=== PATIENT | female | born 1965 | race Caucasian/White ===

== ENCOUNTER 2024-10-06 11:53 | Outpatient (REF) | payer BC, SELFPAY | END 2024-10-06 11:54 | disposition home or self-care (01) | LOC: LBN 11:53 | PROVIDERS: PCP Nurse Practitioner Family; Visit Provider Nurse Practitioner Family | DX: L29.0 Pruritus ani (principal) | CPT/HCPCS: 87177 ==

== ENCOUNTER 2024-10-11 01:28 | Outpatient (CLI) | payer BC, SELFPAY ==
--- NOTE | 2024-10-11 07:00 | DI.MAMMO_ITS ---
Exam(s) MAMMO SCREENING EXAM: MAMMO SCREENING CLINICAL HISTORY: screening,Z12.39. TECHNIQUE: Bilateral full field digital CC and MLO mammographic images were obtained with 3D tomosyn thesis and utilizing computer aided detection (CAD). COMPARISON: No prior mammograms available time of this interpretation. FINDINGS: There are no CAD designations. There are no new spiculated masses nor malignant appearing microcalcification groups. There is no significant architectural distortion nor skin thickening-retraction. IMPRESSION: No radiographic evidence of malignancy. BI-RADS Category 1 - Negative Breast Density - Category B - Scattered areas of fibroglandular density Breast density Category C or D implies that the patient has dense breast tissue. Dense breast tissue can make it harder to find cancer on a mammogram. Dense breast tissue is also associated with an incr eased risk of breast cancer. This information about the result of the mammogram report was provided to the patient to raise their awareness. Use this report when you speak with the patient about their risks for breast cancer, which includes their family history. At that time, you may recommend additional screening tests (Ultrasoun d or MRI) as these tests may add significant information. A negative radiographic report should not delay biopsy if a dominant or clinically suspicious mass is present. Up to ten percent of cancers are not identified on mammography. A negative report may reinforce clinical impression. Adenosis and dense breasts may obscure an underlying neoplasm. False positive reports average 6 to 10%. Patient will receive a letter notifying them of these results.
== END 2024-10-11 01:48 ==
LOC: DI 01:29
PROVIDERS: PCP Nurse Practitioner Family; Visit Provider Nurse Practitioner Family
DX: Z12.31 Encounter for screening mammogram for malignant neoplasm of breast (principal); R92.323 Mammographic fibroglandular density, bilateral breasts
CPT/HCPCS: 77063; 77067

== ENCOUNTER 2025-05-19 09:31 | Day surgery (SDC) | payer BC, SELFPAY ==
[2025-05-19 10:13] VITALS: BP 131/75; PULSE 86; RESP 16; TEMP 35.9; O2SAT 99
[2025-05-19] MEDS: Lactated Ringers 1,000 ML 80 ML IV (10:29)
--- NOTE | 2025-05-19 11:05 | W.ANESPRE ---
General Info Date of Service Date Performed: 05/19/25 Height: 5 ft 4 in Weight: 70.76 kg Body Mass Index (BMI): 26.7 Surgical Procedure: Operation Date: 05/19/25 11:35 Proposed Procedure Side Surgeon p Colonoscopy/Gastroscopy Lindsay Sahu MD Meds Allergies and Home Medications Allergies Allergy/AdvReac Type Severity Reaction Status Date / Time bupropion Allergy Severe maliase Verified 05/19/25 10:12 NSAIDS (Non-Steroidal Allergy Severe Skin Rash Verified 05/19/25 10:12 Anti-Inflamma phenobarbital Allergy Severe Hives Verified 05/19/25 10:12 Home Medication ?Medication ?Instructions ?Recorded melatonin 5 mg tablet 5 mg PO HS 10/01/24 paroxetine HCl 10 mg tablet 10 mg PO DAILY #90 tabs 01/04/25 bisacodyl 5 mg tablet,delayed 5 mg PO ONCE #4 tabs 03/30/25 release (Dulcolax (bisacodyl)) polyethylene glycol 3350 17 17 g PO ONCE #238 grams 03/30/25 gram/dose oral powder Current Visit Medications: Current Medications Generic Name Dose Route Start Last Admin Trade Name Freq PRN Reason Stop Dose Admin Ringer's Solution 1,000 mls @ 80 mls/hr 05/19/25 06:00 05/19/25 10:29 IV 05/19/25 23:59 80 mls/hr INFUSION AASHISH Administration IV Miscellaneous Supplies 1 each 05/19/25 06:00 Iv Access IV 05/19/25 23:59 DIRECTED AASHISH Sodium Biphosphate/Sodium Phosphate 133 ml 05/19/25 06:00 Na Phosphate Enema-Adult 133 Ml Btl NC 05/19/25 23:59 DIRECTED PRN Sodium Chloride 0 ml 05/19/25 06:00 Normal Saline Flush 10 Ml Syr IV 05/19/25 23:59 PRN PRN Sodium Chloride 0 ml 05/19/25 06:00 Normal Saline 10 Ml Vial IJ 05/19/25 23:59 DIRECTED PRN Sterile Water 0 ml 05/19/25 06:00 Water,Injection,Sterile 10 Ml Vial IJ 05/19/25 23:59 DIRECTED PRN PFSH Active Problems Active Problems: Problem Status Onset Code Encounter for screening colonoscopy Acute Z12.11 GERD (gastroesophageal reflux disease) Chronic K21.9 Generalized anxiety disorder Chronic F41.1 CAD (coronary artery disease) Chronic I25.10 Pruritus ani Chronic L29.0 Medical History Medical History Myocardial infarction (~2016) s/p LIZZETTE to mid RCA, and distal LAD. 2017 Pt. states she stopped seeing cardiology in 2017 because she did not want to be on medication. Type 2 diabetes mellitus Urethrocele, female Surgical History Surgical History Hx of hysterectomy H/O elbow surgery History of cataract surgery (~12/04/16) Hx of appendectomy Tobacco Smoking/Tobacco Use Status: Never Passive smoking exposure: Yes Second hand exposure: Yes Alcohol Alcohol Intake: never Substance Use Substance use: Never Substance use type: does not use Vital Signs and Lab Results Vital Signs Most Recent Vital Signs in EMR: Most Recent Vital Signs Temp Pulse Resp BP Pulse Ox 35.9 C L 86 16 131/75 99 05/19/25 10:13 05/19/25 10:13 05/19/25 10:13 05/19/25 10:13 05/19/25 10:13 Point of Care Results Point of Care Results: Finger Stick Blood Glucose 118 05/19/25 10:10 Anesthesia Assessment and Plan Anesthesia History Personal History: No History of Anesthesia Complications Family History: No Family History of Anesthesia Complications Exercise Tolerance Exercise Tolerance: Metabolic Equivalents>4 Pertinent Negatives Pertinent Negatives: No Major Cardiovascular Symptoms or Complaints and No Major Pulmonary Symptoms or Complaints Cardiac & Pulmonary Exam Cardiac Exam: Normal S1/S2 Heart Sounds Pulmonary Exam: Clear Bilateral Breath Sounds Implantable Cardiac Device Does patient have a Pacemaker or an ICD?: No Airway Exam Known Difficult Airway: No Mallampati Class: 2 Mouth Opening: Normal (> 3cm) Thyromental Distance: Greater than 3 cm Neck Range of Motion: Full ROM Neck Circumference: Normal Teeth Condition: Normal Dentition ASA Classification ASA Score: ASA 3 Emergency Case?: No NPO Status NPO Status: NPO Clears >2 hours, Solids >8 hours Anesthesia Plan Resuscitation Status: Full Code Anesthesia Technique: General Anesthesia Airway Planned: Natural Airway Monitors Used: Standard Monitors Preoperative Comments:: Reports no current GERD symptoms, no acute nausea with prep.
[2025-05-19 11:23] VITALS: BMI 26.7
--- NOTE | 2025-05-19 11:33 | W.PM.HP.N ---
Date of service: 05/19/25 Time of Service: 11:34 Assessment and Plan Assessment and plan (1) Encounter for screening colonoscopy: Status: Acute Assessment and plan: proceed w colonoscopy (2) GERD (gastroesophageal reflux disease): Status: Chronic Assessment and plan: proceed with egd. (3) Dysphagia: Status: Acute History of Present Illness Narrative: here for endoscopy. 60yo F due for screening colonoscopy. last scope more than 10y ago, was normal with no polyps. No known fam hx of colrectal cancer. no high risk features or risk factors. no symptoms. chronic constipation. Dysphagia and throat clearing frequently. omeprazole did not help. set up for endoscopy by me today. brother and dad had esoph strictures. PFSH All Active Problems (Updated 05/19/25 @ 11:36 by Lindsay Sahu MD) Dysphagia (Acute) Encounter for screening colonoscopy (Acute) GERD (gastroesophageal reflux disease) (Chronic) Generalized anxiety disorder (Chronic) CAD (coronary artery disease) (Chronic) [place] 2017 s/p LIZZETTE to mid RCA, and distal LAD. Pruritus ani (Chronic) Medical History Myocardial infarction (~2017) s/p LIZZETTE to mid RCA, and distal LAD. 2017 Pt. states she stopped seeing cardiology in 2017 because she did not want to be on medication. Type 2 diabetes mellitus Urethrocele, female Surgical History Hx of hysterectomy H/O elbow surgery History of cataract surgery (~12/04/16) Hx of appendectomy Family History Mother Alcohol use disorder Dementia Depression Heart disease Myocardial infarction Father Alcohol use disorder Myocardial infarction Heart disease Bladder cancer Brother No problems noted. Sister No problems noted. Sister No problems noted. Daughter Hypermobile Macy-Danlos syndrome Diabetes Daughter No problems noted. Maternal Grandfather Diabetes Maternal Grandmother No problems noted. Paternal Grandfather No problems noted. Paternal Grandmother No problems noted. Social History Smoking/Tobacco Use Status: Never Second Hand Exposure: Yes Smoking risk assessment performed?: Yes Alcohol Intake: never Drug use: Never Substance use type: does not use Adopted: No Caregiver/Support person: No Household members: spouse and children Housing: house Number of Children: 2 number of grandchildren: 0 Communication Needs: None Education Level: college Do you need help understanding health information?: Rarely current occupation: retired corporate real estate specialist Sexually active: No Do you think of yourself as: straight/heterosexual Current gender identity: female What is your relationship status?: How often do you talk on the phone with friends or family?: three or more times per week How often do you get together with friends or relatives?: three or more times per week How often do you attend holiness or mandaen services?: decline to answer Do you belong to any clubs or organized social groups?: yes Panel score (0-1 are the most socially isolated patients): 3 NHANES result reviewed/action taken: Yes What type of physical activity do you participate in: none Leonora/Muslim: Non jainism Special leonora needs: No Seatbelt use: always Helmet use: Yes Helmet use: always Drive intox or ride w/intox haul driver: No Firearms in home: No Do you feel safe at home: Yes Do you feel safe in your relationship?: Yes Victim of physical abuse: No Victim of emotional abuse: Yes Victim of sexual abuse: No Would you like helpful sources: Yes Meds Allergies and Home Medications Allergies Allergy/AdvReac Type Severity Reaction Status Date / Time bupropion Allergy Severe maliase Verified 05/19/25 10:12 NSAIDS (Non-Steroidal Allergy Severe Skin Rash Verified 05/19/25 10:12 Anti-Inflamma phenobarbital Allergy Severe Hives Verified 05/19/25 10:12 Home Medications ?Medication ?Instructions ?Recorded ?Confirmed ?Type melatonin 5 mg tablet 5 mg PO HS 10/01/24 05/16/25 History paroxetine HCl 10 mg tablet 10 mg PO DAILY #90 tabs 01/04/25 05/19/25 Rx bisacodyl 5 mg tablet,delayed 5 mg PO ONCE #4 tabs 03/30/25 05/16/25 Rx release (Dulcolax (bisacodyl)) polyethylene glycol 3350 17 17 g PO ONCE #238 grams 03/30/25 05/16/25 Rx gram/dose oral powder Exam Narrative Exam Narrative: awake, NAD eomi, MMM midline trachea, neck is symmetric PULM: normal resp effort, equal chest rise with respiration, no wheezing audible CARDIAC: normal PMI, no jvd, regular rate, normal perfusion abdomen is nondistended. extremities are without deformity, normal movement of all four extremities speech is clear and coherent mood and affect are congruent, no focal neurological deficits skin without rash Results Last Vital Signs Temp 96.6 F L 05/19/25 10:13 Pulse 86 05/19/25 10:13 Resp 16 05/19/25 10:13 BP 131/75 05/19/25 10:13 Pulse Ox 99 05/19/25 10:13 Time Spent Time spent with Patient: <40 minutes Time was spent: preparing to see the patient(eg.review tests) and counseling the patient
--- NOTE | 2025-05-19 11:46 | W.PM.DSUDISC ---
Date of service: 05/19/25 Discharge Plan Disposition Patient Disposition: Home Condition: Stable Discharge Details Attending Provider: Lindsay Sahu Primary Care Provider: Denice Griffin Recommendations for Follow Up Recommended tests to be ordered by follow up provider: Next colonoscopy due in 10 years. Erosive gastritis, hiatal hernia and esophagitis. Pantoprazole for 3 months prescribed. 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 Home Meds and New Rx's Prescriptions: Continued melatonin 5 mg tablet 5 mg PO HS paroxetine HCl 10 mg tablet 10 mg PO DAILY Qty: 90 3RF Discontinued bisacodyl [Dulcolax (bisacodyl)] 5 mg tablet,delayed release (DR/EC) 5 mg PO ONCE Qty: 4 0RF Rx Instructions: Take per colonoscopy instructions provided by ordering providers office polyethylene glycol 3350 17 gram/dose powder 17 g PO ONCE Qty: 238 0RF Rx Instructions: Take per colonoscopy instructions provided by ordering providers office Discharge Instructions Additional Instructions: Next colonoscopy due in 10 years. Your colon is normal. Diverticulosis of the sigmoid colon noted, no diverticulitis (infection) present. Take a daily fiber supplement and eat a high fiber diet to prevent problems and progression of diverticulosis. EGD showed erosions in the stomach and swelling of the esophagus as a consequence of acid. You have hiatal hernia that is small and allows reflux of acid onto the esophagus. You did not need to be stretched/dilated, but you do need medication to heal the esophagus and stomach. Pantoprazole for 3 months prescribed. After 3 months, your primary provider can determine if you should stay on medication for longer. Stand Alone Forms: Anesthesia Discharge Inst., DSU Post EGD Instructions, Colonoscopy Post Instructions, Yris Alonzo (DSU) Activity:: Activity as Tolerated Diet:: As Tolerated Discharge Orders Discharge Orders: Discharge Order (Routine); Ordered 05/19/25 Ordered By: Lindsay Sahu DS: Diagnosis Discharge Diagnosis (1) Encounter for screening colonoscopy: Status: Acute (2) GERD (gastroesophageal reflux disease): Status: Chronic (3) Dysphagia: Status: Acute (4) Hiatal hernia with GERD and esophagitis: Status: Acute (5) Erosive gastritis with hemorrhage: Status: Acute
--- NOTE | 2025-05-19 11:59 | STOM_PTH ---
PATIENT: Home Brown LOC: [facility] U#:[id number] AGE/SX: 60/F ROOM: RE05/19/[address]: Lindsay Sahu MD : 1965 BED: DIS: 05/19/2025 SPEC #: [id number] RECD: 05/19/25 17:04 STATUS: CRAIG Rozina #: [id number] DARLENE: 05/19/25 11:[address]: Lindsay Sahu DEPT: Surgical Specimen RECD BY: Jacqueiln Gonzalez ENTERED: 05/19/25 17:16 SP TYPE: STOMACH OTHR DR: Denice Griffin, ANNEALING OPERATOR Tissues: 1 - STOMACH BIOPSY 2 - STOMACH BIOPSY Procedures: GROSS AND MICRO LEVEL 4 Comments: [id number]
--- NOTE | 2025-05-19 12:03 | W.PM.ENDDOP ---
Date of service: 05/19/25 Time of Service: 12:03 Endoscopy Report DATE OF PROCEDURE: 04/28/25 PRE-OP DIAGNOSIS: GERD, dysphagia POST-OP DIAGNOSIS: same PROCEDURE: EGD with biopsy SURGEON: Lindsay Shau ANESTHESIA TYPE: General:No Airway ESTIMATED BLOOD LOSS: 2 PATHOLOGY: other (1. antrum biopsy. 2. distal esophagus) COMPLICATIONS: None DISPOSITION: same day INDICATIONS: Evaluation of upper digestive system for epigastric pain source/cause PROCEDURE DESCRIPTION: Lubricated endoscope was passed through a bite block into the second portion of the duodenum. The endoscope was withdrawn and the duodenum stomach and esophageal mucosa examined. The duodenum appeared normal. There is no inflammation or ulceration or erosion. The antrum appears severely inflamed with small erosions and old blood flecks. Antral biopsy obtained with cold forceps for microscopic assessment. The fundus appears normal. The cardia appears normal. There is small hiatal hernia upon retroflexion. GE junction is at 36cm. The distal esophagus shows evidence of chronic inflammation without ulceration, varices or candidiasis. The Z-line is regular and there is no evidence of Tolliver's esophagus. Remainder of the esophagus appears normal The upper digestive system was desufflated and the endoscope withdrawn. No complications. Assessment and plan: erosive gastritis hiatal hernia, mild esophagitis recommend PPI daily for 3 months, pantoprazole sent, 40mg daily. May follow up with PCP.
--- NOTE | 2025-05-19 12:13 | COLE_ITS ---
Date of service: 05/19/25 Time of Service: 12:13 Colonoscopy Report Pre-op diagnosis general: Screening for colorectal cancer Post-op diagnosis procedure note: same (diverticulosis of sigmoid colon) Procedure: Colonoscopy Surgeon: Lindsay Sahu Anesthesia Type: General:No Airway Estimated blood loss (mL): 0 Pathology: none sent Complications: None Indications: screening for colorectal cancer Prep: Miralax/Dulcolax (Good) Procedure Description: Patient is here for routine screening colonoscopy. Informed consent was obtained and the patient was taken to the procedure area. The patient was merlin brendan in left lateral decubitus position on the procedure table. Timeout was performed. Anesthesia was induced. A lubricated colonoscope was inserted through the anus and passed to the cecum. The cecum was identified by the ileocecal valve and the appendiceal orifice. The scope was then slowly withdrawn and the colonic and rectal mucosa examined. There are no colon or rectal mass lesions, polyps, AVMs. There is no inflammatory change. Moderate sigmoid diverticulosis was seen. The scope was retroflexed in the anorectal junction examined. Uncomplicated internal hemorrhoids present. Assessment and plan; Normal colon sigmoid diverticulosis Normal screening colonoscopy. Average risk patient. Next screening colonoscopy will be due in 10 years.
[2025-05-19 12:23] VITALS: BP 94/58; PULSE 83; RESP 14; TEMP 36.3; O2SAT 99
--- NOTE | 2025-05-19 12:29 | W.ANESPOSTOP ---
Postoperative Evaluation Date, Time and Location Date Performed: 05/19/25 Time Performed: 12:25 Patient Location: Day Surgery Unit Vital Signs Most Recent Imported Vital Signs: Most Recent Vital Signs Temp Pulse Resp BP Pulse Ox 36.3 C L 83 14 94/58 L 99 05/19/25 12:23 05/19/25 12:23 05/19/25 12:23 05/19/25 12:23 05/19/25 12:23 Pain Score Most Recent Pain Score: Most Recent Pain Score Pain Level 0 05/19/25 12:23 Assessment Mental Status: Arousable with meaningful communication Airway and Respiratory Function: Patent airway with normal (patient baseline) respiratory exam Cardiovascular Function: Hemodynamically Stable Hydration Status: Adequately Hydrated Nausea & Vomiting: No Nausea or Vomiting Pain: Pt. Denies Any Pain Peripheral Nerve Block: Patient did not receive a nerve block
[2025-05-19 12:52] VITALS: BP 123/65; PULSE 84; RESP 16; TEMP 36.4; O2SAT 99
== END 2025-05-19 13:09 | disposition home or self-care (01) ==
LOC: SUR 09:31
PROVIDERS: PCP Nurse Practitioner Family; Visit Provider Surgery
PROC: (CPT 43239; principal; 2025-05-19 11:30)
DX: Z12.11 Encounter for screening for malignant neoplasm of colon (principal); R13.10 Dysphagia, unspecified; K44.9 Diaphragmatic hernia without obstruction or gangrene; K21.01 Gastro-esophageal reflux disease with esophagitis, with bleeding; K29.61 Other gastritis with bleeding; K57.30 Diverticulosis of large intestine without perforation or abscess without bleeding; K22.89 Other specified disease of esophagus
CPT/HCPCS: 43239; 45378; 88305; J2704

== ENCOUNTER 2025-06-16 00:37 | Outpatient (CLI) | payer BC, SELFPAY ==
--- NOTE | 2025-06-21 11:55 | W.NUTRFU ---
Date of service: 06/16/25 Time of Service: 13:00 Nutrition Note NOTE: Huang referred to nutrition for GERD/esophagitis mgt. States nothing gets stuck but she tends to be constantly feeling the need to clear her throat. Takes quercetin and stinging nettle for help to address histamine response if that may be contributing. She doesn't like water and tends to lean on carbonated bevs - zero sugar soda as well as zero sugar powerade and gatorade. no etoh or tea/coffee. She tries to eat 3 meals per day and has some snacks (usually chips/salty food). Education today spent on reviewing GERD strategies: Non-food and food strategies: can elevate head side of bed if symptoms at night. Try to aim for 6 small meals per day instead of 3. Avoid carbonated bevs. try to avoid eating too quickly/swallowing too much air. Consider watching out for soft doughy grain products like bagels and doughy breads/pizza crusts. Avoid spicy/greasy foods and fried foods and rule out foods like onions, chocolate, mint, that can exacerbate GERD. Work on sleep hygiene as sleep quality tends to not be good per Huang. consider low histamine foods (which means lower animal intake and work at getting more legumes, intact grains, nuts and seeds, soy etc..) Huang has my contact info to reach out with any questions or if needing help to continue trouble shooting Time Spent in Nutritional Counseling and Treatment: 25 min
== END 2025-06-16 00:38 | disposition home or self-care (01) ==
LOC: DS 00:37
PROVIDERS: PCP Nurse Practitioner Family; Visit Provider Dietitian, Registered
DX: K21.00 Gastro-esophageal reflux disease with esophagitis, without bleeding (principal)
CPT/HCPCS: 00123; 97802